=== PATIENT | male | born 1990 | race Caucasian/White ===

== ENCOUNTER 2022-12-23 13:04 | Emergency (ER) | payer OTHER ==
[~2022-12-23 13:04] MED LIST: Iopamidol-370 76% 500 ML MDV (1 ML CHARGE) ONE
[2022-12-23] MEDS ORDERED: Boostrix 0.5 ML (Tdap) VIAL (>/=7 yrs of age) ONE (13:18)
== END 2022-12-23 14:10 | disposition home or self-care (01) ==
LOC: ERS 13:04
DX: S39.012A Strain of muscle, fascia and tendon of lower back, initial encounter (principal); S60.511A Abrasion of right hand, initial encounter; V89.2XXA Person injured in unspecified motor-vehicle accident, traffic, initial encounter
CPT/HCPCS: 70450; 71260; 72125; 74177; 90471; 90715; G0390; Q9967